=== PATIENT | female | born 1965 | race American Indian/Alaskan Native ===

== ENCOUNTER 2019-03-20 09:24 | Observation (INO) | payer BC ==
[2019-03-19 10:52] LABS: Basophils % (Auto) 0.7 % (0.0-1.8); Eosinophils # (Auto) 0.1 K/mm3 (0.0-0.4); Eosinophils % (Auto) 1.8 % (0.0-4.3); Hematocrit 42.4 % (30.3-42.9); Hemoglobin 13.9 gm/dl (10.1-14.3); Lymphocytes # (Auto) 1.9 K/mm3 (1.2-5.4); Mean Corpuscular HGB Conc 33 % (30-34); Mean Corpuscular Volume 86 fl (79-97); Monocytes # (Auto) 0.4 K/mm3 (0.0-0.8); Monocytes % (Auto) 7.9 % (0.0-7.3); Platelet Count 359 K/mm3 (140-440); Red Blood Count 4.92 M/mm3 (3.65-5.03); Red Cell Distribution Width 13.6 % (13.2-15.2)
--- NOTE | 2019-03-19 17:01 | Anesthesia Consultation ---
Anesthesia Consult and Med Hx Date of service: 03/19/19 - Airway Anesthetic Teeth Evaluation: Good ROM Head & Neck: Adequate Mental/Hyoid Distance: Adequate Mallampati Class: Class II Intubation Access Assessment: Good - Pulmonary Exam CTA: Yes - Cardiac Exam Cardiac Exam: RRR - Pre-Operative Health Status ASA Pre-Surgery Classification: ASA2 Proposed Anesthetic Plan: General Nerve Block: TAP Block - Central Nervous System Hx Psychiatric Problems: No - Hematic Hx Sickle Cell Disease: Yes (Trait only) - Other Systems Hx Cancer: No
[~2019-03-20 09:24] MED LIST: CELECOXIB 200 MG CAP PO NR; GABAPENTIN 300 MG CAP PO NR; LACTATED RINGERS 1,000 ML IV SCH; MIDAZOLAM 2 MG/2 ML INJ IV NR; fentaNYL 100 MCG/2 ML INJ IV NR
[2019-03-20] MEDS ORDERED: NEOMY 40 MG/POLYMYXIN B 200,000 UNITS/ML (GU) AMPULE IR ONE ×2 (11:40→13:31)
[2019-03-20] MEDS ORDERED: ONDANSETRON 4 MG/2 ML INJ IV PRN (11:47)
[2019-03-20] MEDS ORDERED: HYDROmorphone 1 MG/1 ML INJ IV PRN (11:47)
--- NOTE | 2019-03-20 11:47 | Anesthesia Day of Surgery ---
Anesthesia Day of Surgery - Day of Surgery Patient Examined: Yes Patient H&P Reviewed: Yes Patient is NPO: Yes
--- NOTE | 2019-03-20 11:52 | History and Physical Report ---
History of Present Illness Date of examination: 03/20/19 Date of admission: 03/20/19 Chief complaint: uterine fibroids History of present illness: 53y/o G0 with symptomatic uterine fibroids. Pelvic ultrasound demonstrated an enlarged uterus. Largest leiomyoma 7.1cm. the patient elects for definitive surgery Past History Past Medical History: other (uterine fibroids) Past Surgical History: no surgical history Social history: single - Obstetrical History : 0 Para: 0 Medications and Allergies Allergies Allergy/AdvReac Type Severity Reaction Status Date / Time No Known Allergies Allergy Unverified 03/16/19 12:04 Home Medications Medication Instructions Recorded Confirmed Last Taken Type No Known Home Medications [No 03/16/19 03/16/19 Unknown History Reported Home Medications] Active Meds: Active Medications Celecoxib (Celebrex) 200 mg PO PREOP NR Stop: 03/20/19 23:59 Fentanyl (Sublimaze) 100 mcg IV ONCE NR Stop: 03/20/19 23:59 Gabapentin (Gabapentin) 300 mg PO PREOP NR Stop: 03/20/19 23:59 Hydromorphone HCl (Dilaudid) 0.5 mg IV Q10MIN PRN PRN Reason: Pain , Severe (7-10) Stop: 03/20/19 22:00 Lactated Ringer's (Lactated Ringers) 1,000 mls @ 100 mls/hr IV DIRECT PRINCE Ondansetron HCl (Zofran) 4 mg IV ONCE PRN PRN Reason: Nausea And Vomiting Review of Systems All systems: negative Genitourinary: vaginal bleeding, pelvic pain - Physical Exam Breasts: Positive: deferred Cardiovascular: Regular rate Lungs: Positive: Clear to auscultation Abdomen: Positive: normal appearance Results Result Diagrams: 03/19/19 10:20 All other labs normal. Assessment and Plan - Patient Problems (1) Uterine fibroid Current Visit: Yes Status: Acute Plan to address problem: scheduled for robotic hysterectomy and BSO (2) Postmenopausal bleeding Current Visit: Yes Status: Acute
[2019-03-20] MEDS ORDERED: BUPIVACAINE-EPINEPHRINE/PF 0.5%-1:200,000 (30 ML) VIAL INFILTRATI ONE (12:02)
[2019-03-20] MEDS ORDERED: MIDAZOLAM 2 MG/2 ML INJ IV NR (12:15)
[2019-03-20] MEDS ORDERED: MIDAZOLAM 2 MG/2 ML INJ ONE (12:17)
[2019-03-20] MEDS ORDERED: fentaNYL 100 MCG/2 ML INJ ONE (12:35)
[2019-03-20] MEDS ORDERED: PROPOFOL 200 MG/20 ML VIAL IV ONE (12:35)
[2019-03-20] MEDS ORDERED: LIDOCAINE MPF (2%) 20 MG/1 ML VIAL 5 ML ONE (12:35)
[2019-03-20] MEDS ORDERED: ROCURONIUM 50 MG/5 ML INJ IV ONE (12:36)
[2019-03-20] MEDS ORDERED: dexAMETHasone 20 MG/5 ML VIAL ONE (12:36)
[2019-03-20] MEDS ORDERED: PHENYLEPHRINE/NS 1,000 MCG/10 ML SYRINGE (OR USE) IV ONE (13:00)
[2019-03-20] MEDS ORDERED: ceFAZolin/STERILE WATER 2 GM/20 ML SYRINGE IV NR (13:00)
[2019-03-20] MEDS ORDERED: ePHEDrine SULFATE 50 MG/1 ML INJ ONE (13:31)
[2019-03-20] MEDS ORDERED: SODIUM CHLORIDE 0.9% IRRIG SOLN 2000 ML IR ONE (13:32)
[2019-03-20] MEDS ORDERED: SODIUM CHLORIDE 0.9% IRR 1,500 ML BOTTLE IR ONE (13:32)
[2019-03-20] MEDS ORDERED: ONDANSETRON 4 MG/2 ML INJ ONE (13:48)
[2019-03-20] MEDS ORDERED: GLYCOPYRROLATE 0.4 MG/2 ML INJ ONE (14:27)
[2019-03-20] MEDS ORDERED: NEOSTIGMINE 10MG/10 ML INJ MDV ONE (14:27)
[2019-03-20] MEDS ORDERED: ZOLPIDEM 5 MG TAB PO PRN (14:37)
[2019-03-20] MEDS ORDERED: ACETAMINOPHEN 325 MG TAB PO PRN (14:37)
[2019-03-20] MEDS ORDERED: oxyCODONE /ACETAMINOPHEN 5-325MG TAB PO PRN (14:37)
[2019-03-20] MEDS ORDERED: IBUPROFEN 800 MG TAB PO PRN (14:37)
[2019-03-20] MEDS ORDERED: MORPHINE 4 MG/1 ML INJ IV PRN (14:37)
--- NOTE | 2019-03-20 14:37 | Operative Report ---
Operative Report Operative Report: Date of surgery: 03/20/2019 Preoperative diagnoses: Symptomatic uterine fibroids; postmenopausal bleeding Postoperative diagnoses: Same as above; pelvic adhesions Procedure: Robotic hysterectomy; bilateral salpingo-oophorectomy; lysis of adhesions Surgeon: Stefani Roa M.D. Cane Loader: Jackie Quiroz Anesthesia: Gen. endotracheal anesthesia Estimated blood loss: 100 mL Pathology: Uterus, cervix, leiomyomas, bilateral tubes and ovaries Indication: 53-year-old G0 with symptomatic uterine fibroids and postmenopausal bleeding. The patient elected to undergo definitive surgical management. Procedure: The patient was taken to the operating room and given general endotracheal anesthesia without complication. She is prepped and draped in a normal sterile fashion. A bivalve speculum was placed in the patient's vagina and a single- tooth tenaculum placed on the anterior lip of the cervix. The uterus was sounded with the uterine sound. A [employer] uterine manipulator was placed in the bivalve speculum was then removed. Attention was then turned to the patient's abdomen where a 12 millimeter supra umbilical skin incision was then made. A Veress needle was placed and peritoneal entry was verified water-filled syringe. Insufflation of the peritoneal cavity was performed with CO2 gas. The 12 mm trocar was then placed under direct visualization. An additional 8 mm trocar was placed on the patient's left and right lateral side just opposite of the supraumbilical trocar. An additional 5 mm right lateral trocar was then placed as the accessory port. The Kyle Joel device was used to close the fascia of the 12 mm incision. The patient was then placed in steep Trendelenburg. The da Tasha robot was then engaged. A fenestrated forcep was placed in arm 2 and a vessel sealer was placed in arm 1. The surgeon then transferred to the surgical console. Gen. survey revealed a markedly enlarged fibroid uterus with multiple leiomyomas. The patient was noted to have a leiomyoma in the right broad ligament attached to the right pelvic sidewall. There were multiple large intestinal adhesions to the posterior aspect of the uterus. The infundibulopelvic ligament was then isolated on the right. The vessel sealer was used to coagulate the ligament which was then transected. The tube and ovary were transected from the supply. The leiomyoma and the broad ligament on the right had to undergo lysis of adhesions and resection of the tissue in order to release leiomyoma. The round ligament was then coagulated and transected also. The vesicouterine peritoneum was then entered from the patient's right side. The uterine vessels were then coagulated with the vessel sealer. The vessels were then transected . Posteriorly the monopolar scissors were used in order to remove the bowel adhesions to the posterior aspect of the uterus. Sharp and blunt dissection was used. Attention was then turned to the patient's left side where the infundibulopelvic ligament and mesosalpinx were again isolated coagulated and transected. The vesical peritoneum was then entered from the left and joined in the midline. Peritoneum was reflected off of the lower uterine segment. Uterine vessels were then coagulated and then transected. The blood supply to the uterus was adequately contained, a posterior colpotomy was made. The V care ring was visualized. Posterior colpotomy was created with the monopolar scissors. The incision was continued circumferentially until anterior colpotomy was made. The cervix and uterus were amputated from the vaginal cuff. In order to facilitate delivery through the vagina, the uterus had to be bivalved multiple times. The uterus and leiomyomas were then removed along with the tubes and ovaries bilaterally through the vagina and a warm laparotomy sponge was placed and maintain the pneumoperitoneum. The vaginal cuff was then closed in a running fashion with V lock suture. Irrigation of the pelvis was performed. Hemoblast was applied to the incision. The skin was then reapproximated with 4-0 Monocryl. The tissue was sent to pathology which included the cervix, uterus, leiomyomas, tubes and ovaries. The patient was then successfully extubated. She was then taken to the recovery room in stable condition. All sponge laps and needle counts were correct x2.
[2019-03-20] MEDS ORDERED: D5W/LACTATED RINGERS 1,000 ML IV SCH (15:00)
[2019-03-20] MEDS ORDERED: LACTATED RINGERS 1,000 ML ONE (15:22)
[2019-03-20] MEDS: KETOROLAC 30 MG/1 ML INJ IV SCH (18:08)
--- NOTE | 2019-03-20 18:53 | Post Anesthesia Evaluation ---
- Post Anesthesia Evaluation Patient Participated: Yes Airway Patent: Yes Stable Respiratory Function: Yes Nausea/Vomiting: No Temp > 96.8F: Yes Pain Manageable: Yes Adequeate Hydration: Yes Anesthesia Complications: No Block Receding Appropriately: Yes Patient on Ventilator: No
[2019-03-21 03:45] LABS: Hematocrit 39.1 % (30.3-42.9); Hemoglobin 13.2 gm/dl (10.1-14.3)
[2019-03-21] MEDS: KETOROLAC 30 MG/1 ML INJ IV SCH ×2 (05:10→05:11)
--- NOTE | 2019-03-21 10:49 | Progress Note ---
Assessment and Plan - Patient Problems (1) Uterine fibroid Current Visit: Yes Status: Acute Plan to address problem: discharge home today (2) Postmenopausal bleeding Current Visit: Yes Status: Acute Subjective - Subjective Date of service: 03/21/19 Interval history: Patient tolerated diet. Complains of gas pains. She is voiding and ambulating Patient reports: appetite normal, voiding normally, pain well controlled Objective - Vital Signs Latest vital signs: Vital Signs Temp Pulse Pulse Resp Resp BP BP 03/21/19 07:59 98.2 F 69 16 107/61 03/21/19 05:40 18 03/21/19 05:11 18 03/21/19 05:10 18 03/21/19 04:34 99.0 F 66 18 115/66 03/20/19 23:08 99.5 F 74 18 117/60 03/20/19 22:59 18 03/20/19 22:29 18 03/20/19 22:00 70 18 18 03/20/19 20:24 97.6 F 63 20 130/77 03/20/19 18:38 18 03/20/19 16:00 97.3 F L 57 L 18 105/57 03/20/19 15:39 77 18 128/74 03/20/19 15:24 97.2 F L 72 16 122/72 03/20/19 15:09 77 16 125/73 03/20/19 15:04 60 14 130/73 03/20/19 14:59 66 15 141/70 03/20/19 14:54 97.0 F L 60 15 133/71 03/20/19 13:19 14 03/20/19 12:29 62 11 L 106/61 03/20/19 12:24 53 L 13 103/67 03/20/19 12:19 51 L 16 117/66 03/20/19 11:15 16 03/20/19 11:00 98.7 F 57 L 16 122/70 Pulse Ox 03/21/19 07:59 97 03/21/19 05:40 03/21/19 05:11 03/21/19 05:10 03/21/19 04:34 99 03/20/19 23:08 100 03/20/19 22:59 03/20/19 22:29 03/20/19 22:00 03/20/19 20:24 94 03/20/19 18:38 03/20/19 16:00 100 03/20/19 15:39 100 03/20/19 15:24 100 03/20/19 15:09 100 03/20/19 15:04 100 03/20/19 14:59 100 03/20/19 14:54 96 03/20/19 13:19 03/20/19 12:29 100 03/20/19 12:24 100 03/20/19 12:19 100 03/20/19 11:15 03/20/19 11:00 100 Intake and Output 03/20/19 03/21/19 03/21/19 22:59 06:59 14:59 Intake Total 480 120 Output Total 275 1000 Balance -275 -520 120 Intake: Oral 480 120 Output: Urine 275 1000 Indwelling Catheter 1000 Other: Total, Intake Amount 240 120 Total, Output Amount 600 Voiding Method Indwelling Catheter Indwelling Catheter Toilet # Voids Void 1 - Exam Abdomen: Present: normal appearance
--- NOTE | 2019-03-21 10:51 | Discharge Summary ---
Providers - Providers Date of Admission: 03/20/19 14:37 Date of discharge: 03/21/19 Attending physician: MARLI BAEZ Primary care physician: [facility] Hospitalization Reason for admission: other (uterine fibroids) Procedure: other (robotic hysterectomy and BSO) Incision: normal Discharge diagnosis: other (Uterine fibroids) Hospital course: Patient admitted the day of surgery for a robotic hysterectomy. See op note. Postop unremarkable Condition at discharge: Good Disposition: DC-[id number] TO HOME OR SELFCARE - Discharge Diagnoses (1) Uterine fibroid Status: Acute (2) Postmenopausal bleeding Status: Acute Plan - Discharge Medications Prescriptions: Ibuprofen [Motrin] 800 mg PO Q8HR PRN #60 tablet PRN Reason: Pain, Moderate (4-6) oxyCODONE /ACETAMINOPHEN [Percocet 5/325] 1 tab PO Q6HR PRN #30 tablet PRN Reason: Pain - Provider Discharge Summary Activity: no sex for 6 weeks, no heavy lifting 4 weeks, no strenuous exercise Diet: routine Instructions: routine Additional instructions: [] Smoking cessation referral if applicable(refer to patient education folder for contact #) [] Refer to [facility] Booklet Call your doctor immediately for: * Fever > 100.5 * Heavy vaginal bleeding ( >1 pad per hour) * Severe persistent headache * Shortness of breath * Reddened, hot, painful area to leg or breast * Drainage or odor from incision. * Keep incision clean and dry at all times and follow doctor's instructions regarding bathing/showering schedule followup in 4 weeks - Follow up plan
[2019-03-21 12:16] VITALS: BP 110/61
== END 2019-03-21 13:00 | disposition home or self-care (01) ==
LOC: OR 09:24 → OB 14:37
PROVIDERS: ADMIT Obstetrics & Gynecology; ATTEND Obstetrics & Gynecology
DX: D25.9 Leiomyoma of uterus, unspecified (principal); N95.0 Postmenopausal bleeding
CPT/HCPCS: 36415; 58573; 64450; 84703; 85014; 85018; 85025; 86850; 86900; 86901; 88307; 96374; 96375; 96376; A4217; G0378; J0690; J1100; J1885; J2250; J2270; J2370; J2405; J2704; J2710; J3010; J7120; S2900

== ENCOUNTER 2019-04-25 11:05 | Outpatient (CLI) | payer BC ==
[2019-04-25 12:00] LABS: Blood Urea Nitrogen 9 mg/dL (7-17)
--- NOTE | 2019-04-25 14:36 | Cat Scan Report ---
CT ABDOMEN AND PELVIS WITHOUT CONTRAST HISTORY: PELVIC PAIN/S/P HYSTERECTOMY COMPARISON: None TECHNIQUE: Axial CT images were obtained through the abdomen and pelvis without IV contrast. Sagittal and coronal reformatted images. All CT scans at this location are performed using CT dose reduction for ALARA by means of automated exposure control. FINDINGS: CT ABDOMEN: Lung Bases: Clear. Liver: No significant abnormality. Biliary: No significant abnormality. Spleen: No significant abnormality. Unenlarged. Pancreas: No significant abnormality. Adrenals: No significant abnormality. Kidneys: No significant abnormality. Lymphatics: No lymphadenopathy. Vasculature: No significant abnormality. Bowel/Peritoneum: No significant abnormality. No free air. No free fluid. Normal appendix. CT PELVIS: : Hysterectomy changes are suspected. The vaginal cuff is unremarkable. The adnexa are within rosangela l limits. The bladder is empty and poorly evaluated. No pelvic fluid collection or inflammation. Osseous Structures: No significant abnormality. Additional Findings: None IMPRESSION: No significant abnormality. Signer Name: Aydin Gastelum Jr, MD Signed: 04/25/2019 2:31 PM Workstation Name: [id number]
== END 2019-04-25 11:06 | disposition home or self-care (01) ==
LOC: CT 11:05
PROVIDERS: ATTEND Obstetrics & Gynecology
DX: R10.2 Pelvic and perineal pain (principal); Z90.710 Acquired absence of both cervix and uterus
CPT/HCPCS: 36415; 74178; 82565; 84520; Q9967